=== PATIENT | female | born 1950 | race Caucasian/White ===

== ENCOUNTER 2018-07-09 18:14 | Emergency (ER) | payer MEDICARE, OTHER ==
[2018-07-09] MEDS ORDERED: Lidocaine 1% (PF) 30 ML VIAL ONE ×2 (18:37→18:38)
[2018-07-09] MEDS ORDERED: Adacel (T-DAP) 0.5 ML SYRINGE ONE (19:13)
[2018-07-09] MEDS ORDERED: Bacitracin Zinc 1 Packet ONE (19:13)
--- NOTE | 2018-07-09 19:55 | RAD ---
RIGHT HAND THREE VIEWS: 07/09/18 HISTORY: Cut hand on a piece of glass in the palm region. The bones are demineralized. There is a radiopaque triangular shaped foreign body which is seen more on the palmar side of the hand at the level of the base of the fifth metacarpal. I do not appreciate any underlying fracture. There is a subtle area of lucency seen through the cortex of the mid shaft t hrough the fifth metacarpal but this is not confirmed on the other views and may just be related to t he bony demineralization. IMPRESSION: Radiopaque foreign body near the base of the fifth metacarpal. No definite underlying fracture. A sub tle lucency is seen through the mid shaft of the fifth metacarpal is seen on only one projection and of doubtful significance. POS: GABY
== END 2018-07-09 19:37 | disposition home or self-care (01) ==
LOC: NAV ERS 18:14
DX: S61.421A Laceration with foreign body of right hand, initial encounter (principal); E11.9 Type 2 diabetes mellitus without complications; Z79.899 Other long term (current) drug therapy; W25.XXXA Contact with sharp glass, initial encounter
CPT/HCPCS: 90471; 90715; J2001

== ENCOUNTER 2020-12-08 13:53 | Outpatient (CLI) | payer MEDICARE, OTHER | END 2020-12-08 13:54 | disposition home or self-care (01) | LOC: NAV RAD 13:53 | PROVIDERS: ATTEND Internal Medicine Rheumatology | DX: M25.551 Pain in right hip (principal); M25.552 Pain in left hip; M54.2 Cervicalgia; G89.29 Other chronic pain; K50.90 Crohn's disease, unspecified, without complications; M47.812 Spondylosis without myelopathy or radiculopathy, cervical region; Z98.890 Other specified postprocedural states | CPT/HCPCS: 72050; 72170 ==

== ENCOUNTER 2022-08-14 01:27 | Emergency (ER) | payer MEDICARE, OTHER | END 2022-08-14 02:28 | disposition home or self-care (01) | LOC: NAV ERS 01:27 | DX: K94.03 Colostomy malfunction (principal); E11.9 Type 2 diabetes mellitus without complications | CPT/HCPCS: 99282 ==